=== PATIENT | female | born 1975 | race Asian ===

== ENCOUNTER 2017-02-10 19:34 | Emergency (ER) | payer MEDICAID ==
[~2017-02-10] VITALS: Ht 162.6 cm; Wt 121.0 kg
[2017-02-10] MEDS ORDERED: ASPIRIN 325MG EC TABLET PO ONE (20:45)
[2017-02-10 21:02] LABS: BASOPHILS % 0.6 % (0.0-2.0); EOSINOPHILS % 6.3 % (0.0-5.0); HEMATOCRIT. 28.6 % (36.0-48.0); HEMOGLOBIN. 8.9 g/dL (12.0-16.0); LYMPHOCYTES % 26.4 % (20.0-50.0); MEAN CORPUSCULAR VOLUME 64.3 fL (81.0-99.0); MONOCYTES % 6.7 % (2.0-8.0); PLATELET 342 x1000/uL (130-400); RED BLOOD CELL COUNT 4.45 mill/uL (4.2-5.4); RED CELL DISTRIBUTION WIDTH 19.5 % (11.6-14.6)
[2017-02-10 21:09] LABS: PROTHROMBIN TIME 10.1 sec
[2017-02-10 21:18] LABS: CARBON DIOXIDE 26 mEq/L (21-32); CHLORIDE 107 mEq/L (98-107); TROPONIN I < 0.02 ng/mL (0.00-0.04)
[2017-02-10 21:28] LABS: CLARITY URINE TURBID (CLEAR); COLOR URINE YELLOW (YELLOW); GLUCOSE URINE NEGATIVE (NEGATIVE); KETONES URINE NEGATIVE (NEGATIVE); LEUKOCYTE ESTERASE URINE 2+ (NEGATIVE); NITRITE URINE NEGATIVE (NEGATIVE); OCCULT BLOOD URINE NEGATIVE (NEGATIVE); PROTEIN URINE NEGATIVE (NEGATIVE); SPECIFIC GRAVITY URINE 1.023 (1.005-1.030); UROBILINOGEN URINE 0.2 E.U./dL (0.2-1.0)
[2017-02-10 22:06] LABS: PLATELET ESTIMATE NORMAL
[2017-02-11 01:13] VITALS: BP 132/79
== END 2017-02-11 01:14 | disposition home or self-care (01) ==
LOC: ER 19:34
DX: R07.89 Other chest pain (principal); N39.0 Urinary tract infection, site not specified; D64.9 Anemia, unspecified; R73.9 Hyperglycemia, unspecified; Z98.890 Other specified postprocedural states
CPT/HCPCS: 36415; 71010; 80053; 81001; 81025; 84484; 85025; 85610; 93005; 99285; Z7610